=== PATIENT | male | born 1985 | race Caucasian/White ===

== ENCOUNTER 2018-12-30 15:10 | Emergency (ER) | payer OTHER ==
[~2018-12-30] VITALS: Ht 177.8 cm; Wt 81.6 kg
[2018-12-30] MEDS ORDERED: CELECOXIB100 MG PO (18:34)
== END 2018-12-30 18:51 | disposition home or self-care (01) ==
LOC: ER 15:10
DX: S53.492A Other sprain of left elbow, initial encounter (principal); X50.3XXA Overexertion from repetitive movements, initial encounter; Y93.89 Activity, other specified; Y92.89 Other specified places as the place of occurrence of the external cause; Y99.8 Other external cause status